=== PATIENT | female | born 1995 | race African-American/Black ===

== ENCOUNTER 2024-03-04 14:28 | Day surgery (SDC) | payer OTHER, MEDICAID, BC ==
[2024-03-04 14:55] VITALS: BMI 29.7
[2024-03-04 17:45] LABS: Fetal Membranes Rupture No Membranes Rupture (No Rupture)
[2024-03-04 18:37] LABS: Bilirubin Neg (Negative); Blood, Urine Negative (Negative); Clarity Clear (Clear); Glucose, Urine (Dipstick) 100 mg/dL (Negative); Ketone, Urine 50 mg/dL (Negative); Leukocyte Negative (Negative); Nitrite Negative (Negative); Protein, Urine (Dipstick) 15 mg/dl (Neg-Trace); Specific Gravity, Urine 1.025 (1.005-1.030); Urobilinogen Normal mg/dL (Less than 2)
[2024-03-04 18:49] LABS: Bacteria/HPF 2+ HPF (None Seen); CAUTI Indications for Culture Pregnancy; RBC/HPF 0-3 HPF (0-3); Squamous Epithelial 0-3 HPF (0-3); WBC/HPF 0-3 HPF (0-3)
[2024-03-04 18:51] LABS: Mucous/LPF 1+ LPF (<2+)
[2024-03-04 18:52] LABS: Urine Culture Reflex Yes Yes
[2024-03-04] MEDS: Fluconazole 100 MG TAB PO SCH (19:50)
== END 2024-03-04 19:54 | disposition home or self-care (01) ==
LOC: CSHLD/OP 14:28
PROVIDERS: ATTEND Obstetrics & Gynecology
DX: O99.891 Other specified diseases and conditions complicating pregnancy (principal); R10.9 Unspecified abdominal pain; O23.593 Infection of other part of genital tract in pregnancy, third trimester; N89.8 Other specified noninflammatory disorders of vagina; Z88.2 Allergy status to sulfonamides; O98.813 Other maternal infectious and parasitic diseases complicating pregnancy, third trimester; B37.31 Acute candidiasis of vulva and vagina; Z3A.37 37 weeks gestation of pregnancy; Z79.899 Other long term (current) drug therapy; Z79.82 Long term (current) use of aspirin
CPT/HCPCS: 81001; 84112; 87086; 87480; 87510; 87660; 99285

== ENCOUNTER 2024-03-18 15:30 | Inpatient (IN) | payer BC, OTHER, MEDICAID ==
[2024-03-18] MEDS ORDERED: HYDROcodone/Acetaminophen 5/325 mg Tablet PO PRN ×3 (16:03→22:59)
[2024-03-18] MEDS ORDERED: Promethazine HCl 25 MG/ML VIAL IM PRN (16:03)
[2024-03-18] MEDS ORDERED: hydrALAZINE 20 MG/ML VIAL SLOW IVP PRN ×2 (16:03→22:59)
[2024-03-18] MEDS ORDERED: fentaNYL 50 mcg/mL 1 mL Vial SLOW IVP PRN (16:03)
[2024-03-18] MEDS ORDERED: Ondansetron PF 4 MG/2 ML Vial IVP PRN ×2 (16:03→22:59)
[2024-03-18] MEDS: Lactated Ringer's 1,000 ML IV SCH (16:15)
[2024-03-18] MEDS ORDERED: Oxytocin 30 units/NS 500 ML 500 ML IV SCH ×2 (16:15→22:59)
[2024-03-18 16:45] LABS: Hematocrit 31.7 % (34.9-44.5); Hemoglobin 10.9 g/dL (12.0-15.5); Mean Corpuscular HGB CONC 34.4 g/dL (32.0-36.0); Mean Corpuscular Hemoglobin 30.1 pg (27.0-33.0); Mean Corpuscular Volume 87.6 fL (81.6-98.3); Mean Platelet Volume 9.7 fL (7.4-10.4); Platelet Count 193 10x3/uL (150-450); RBC Distribution Width 14.6 % (11.5-14.5); Red Blood Cell (RBC) Count 3.62 10x6/uL (3.90-5.03); White Blood Cell (WBC) Count 6.8 10x3/uL (3.5-10.5)
[2024-03-18 17:11] LABS: HBsAg Index 0.28 S/CO (0-0.99); Hep B Surf Ag - L&D Non-Reactive S/CO (NonReactive)
[2024-03-18 17:13] LABS: Syphilis Antibody Nonreactive (Nonreactive); Syphilis Antibody Index 0.05 S/CO (<1.00 Non-Reactive)
[2024-03-18 17:39] VITALS: BMI 29.1
[2024-03-18] MEDS: Oxytocin 30 units/NS 500 ML 500 ML IV SCH (19:33)
[2024-03-18] MEDS: Lidocaine 1% (PF) 30 ML VIAL SC PRN (19:44)
[2024-03-18] MEDS: Ibuprofen 800 MG TAB PO PRN (21:33)
[2024-03-18] MEDS ORDERED: Milk Of Magnesia 30 ML UDCUP PO PRN (22:59)
[2024-03-18] MEDS ORDERED: Bisacodyl 10 MG SUPP PR PRN (22:59)
[2024-03-18] MEDS ORDERED: diphenhydrAMINE 25 MG CAP PO PRN (22:59)
[2024-03-18] MEDS ORDERED: Lanolin Ointment 7 GM TUBE TOP PRN (22:59)
[2024-03-19] MEDS: Docusate 100 MG CAP PO SCH ×2 (03:29→09:40)
[2024-03-19] MEDS: Ibuprofen 800 MG TAB PO SCH (05:35)
[2024-03-19] MEDS: Prenatal Vitamin 1 TAB PO SCH (09:40)
[2024-03-19] MEDS: HYDROcodone/Acetaminophen 5/325 mg Tablet PO PRN (15:12)
[2024-03-19] MEDS: Ferrous Sulfate 325 MG TAB PO SCH (15:17)
[2024-03-19] MEDS: Preparation H Ointment 28 GM TUBE PR PRN (22:23)
[2024-03-19] MEDS: Benzocaine-Menthol 82.5 ML CAN TOP PRN (22:25)
[2024-03-20] MEDS: Boostrix 0.5 ML (Tdap) VIAL (>/=7 yrs of age) IM ONE (07:25)
[2024-03-20 07:40] VITALS: BP 118/74; TEMP 98.3
== END 2024-03-20 15:00 | disposition home or self-care (01) | DRG 807 ==
LOC: CSHLD/OP 15:30 → CSHLD 16:31 → CSHPP 22:05
PROVIDERS: ADMIT Obstetrics & Gynecology; ATTEND Obstetrics & Gynecology
PROC: 10E0XZZ Delivery of Products of Conception, External Approach (ICD-10-PCS; principal; 2024-03-18)
PROC: 0KQM0ZZ Repair Perineum Muscle, Open Approach (ICD-10-PCS; 2024-03-18)
PROC: 0UQMXZZ Repair Vulva, External Approach (ICD-10-PCS; 2024-03-18)
PROC: 3E0234Z Introduction of Serum, Toxoid and Vaccine into Muscle, Percutaneous Approach (ICD-10-PCS; 2024-03-19)
DX: O99.02 Anemia complicating childbirth (principal); Z37.0 Single live birth; Z3A.39 39 weeks gestation of pregnancy; D64.9 Anemia, unspecified; Z88.2 Allergy status to sulfonamides; O70.1 Second degree perineal laceration during delivery; O71.82 Other specified trauma to perineum and vulva; Z67.41 Type O blood, Rh negative
CPT/HCPCS: 36415; 85027; 85461; 86780; 86850; 86870; 86900; 86901; 87340; 90384; 96372; 99285; J2590; J7120

== ENCOUNTER 2025-03-16 11:07 | Outpatient (CLI) | payer BC | END 2025-03-16 11:08 | disposition home or self-care (01) | LOC: CSHULT 11:07 | PROVIDERS: ATTEND Obstetrics & Gynecology | DX: R49.0 Dysphonia (principal) | CPT/HCPCS: 76536 ==

== ENCOUNTER 2025-04-08 00:18 | Inpatient (IN) | payer BC, MEDICAID ==
[2025-04-08 00:51] VITALS: BMI 30.4
[2025-04-08 01:08] LABS: Fetal Membranes Rupture RUPTURE DETECTED (No Rupture)
[2025-04-08 02:05] LABS: Hematocrit 33.8 % (34.9-44.5); Hemoglobin 12.0 g/dL (12.0-15.5); Mean Corpuscular Hemoglobin 30.5 pg (27.0-33.0); Mean Corpuscular Volume 85.8 fL (81.6-98.3); Platelet Count 223 10x3/uL (150-450); Red Blood Cell (RBC) Count 3.94 10x6/uL (3.90-5.03); White Blood Cell (WBC) Count 5.37 10x3/uL (3.5-10.5)
[2025-04-08 02:34] LABS: Hep B Surf Ag - L&D Non-Reactive S/CO (NonReactive)
[2025-04-08 02:35] LABS: Syphilis Antibody Index 0.08 S/CO (<1.00 Non-Reactive)
[2025-04-08] MEDS ORDERED: Tranexamic Acid 1,000 MG/10 ML VIAL IVP PRN ×2 (02:45→06:59)
[2025-04-08] MEDS ORDERED: HYDROcodone/Acetaminophen 5/325 mg Tablet PO PRN ×5 (02:45→14:52)
[2025-04-08] MEDS ORDERED: Lidocaine 1% (PF) 30 ML VIAL SC PRN ×3 (02:45→06:59)
[2025-04-08] MEDS ORDERED: Methylergonovine 0.2 MG/ML VIAL IM PRN ×2 (02:45→06:58)
[2025-04-08] MEDS ORDERED: Acetaminophen 500 MG TAB PO PRN ×2 (02:45→06:57)
[2025-04-08] MEDS ORDERED: Ibuprofen 800 MG TAB PO PRN ×3 (02:45→07:00)
[2025-04-08] MEDS ORDERED: hydrALAZINE 20 MG/ML VIAL SLOW IVP PRN ×3 (02:45→14:52)
[2025-04-08] MEDS ORDERED: Carboprost 250 MCG/ML AMP IM PRN ×2 (02:45→06:58)
[2025-04-08] MEDS ORDERED: Ondansetron PF 4 MG/2 ML Vial IVP PRN ×3 (02:45→14:52)
[2025-04-08] MEDS: Oxytocin 30 units/NS 500 ML 500 ML IV SCH (06:16)
[2025-04-08] MEDS ORDERED: Diphenoxylate HCl/Atropine Tablet PO PRN (06:59)
[2025-04-08] MEDS ORDERED: Oxytocin 30 units/NS 500 ML 500 ML IV SCH ×2 (07:00→14:52)
[2025-04-08] MEDS ORDERED: Bisacodyl 10 MG SUPP PR PRN (14:52)
[2025-04-08] MEDS ORDERED: Preparation H Ointment 28 GM TUBE PR PRN (14:52)
[2025-04-08] MEDS ORDERED: Lanolin Ointment 7 GM TUBE TOP PRN (14:52)
[2025-04-08] MEDS ORDERED: Milk Of Magnesia 30 ML UDCUP PO PRN (14:52)
[2025-04-08] MEDS ORDERED: diphenhydrAMINE 25 MG CAP PO PRN (14:52)
[2025-04-08] MEDS: Oxytocin 30 units/NS 500 ML 500 ML ONE (14:54)
[2025-04-08] MEDS: Boostrix 0.5 ML (Tdap) VIAL (>/=7 yrs of age) IM ONE (15:25)
[2025-04-08] MEDS: Ibuprofen 800 MG TAB PO SCH (15:36)
[2025-04-08] MEDS: Benzocaine-Menthol 82.5 ML CAN TOP PRN (15:37)
[2025-04-08] MEDS: Ferrous Sulfate 325 MG TAB PO SCH (18:40)
[2025-04-10 08:08] VITALS: BP 122/79; TEMP 98.3
== END 2025-04-10 10:45 | disposition home or self-care (01) | DRG 807 ==
LOC: CSHLD/OP 00:18 → CSHLD 01:17 → CSHPED 14:51
PROVIDERS: ADMIT Obstetrics & Gynecology; ATTEND Obstetrics & Gynecology
PROC: 10E0XZZ Delivery of Products of Conception, External Approach (ICD-10-PCS; principal; 2025-04-08)
PROC: 4A1HXCZ Monitoring of Products of Conception, Cardiac Rate, External Approach (ICD-10-PCS; 2025-04-08)
PROC: 3E0334Z Introduction of Serum, Toxoid and Vaccine into Peripheral Vein, Percutaneous Approach (ICD-10-PCS; 2025-04-08)
PROC: 3E0234Z Introduction of Serum, Toxoid and Vaccine into Muscle, Percutaneous Approach (ICD-10-PCS; 2025-04-08)
DX: O48.0 Post-term pregnancy (principal); Z37.0 Single live birth; Z3A.40 40 weeks gestation of pregnancy; Z98.890 Other specified postprocedural states; Z79.899 Other long term (current) drug therapy; Z23 Encounter for immunization
CPT/HCPCS: 36415; 84112; 85027; 85461; 86780; 86850; 86900; 86901; 87340; 87480; 87510; 87660; 90384; 96372; 99285; J2590